=== PATIENT | female | born 2000 | race Caucasian/White ===

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

== ENCOUNTER 2024-08-16 12:26 | Emergency (ER) | payer OTHER ==
[~2024-08-16] VITALS: Ht 182.9 cm; Wt 80.7 kg
[2024-08-16] MEDS ORDERED: AMPHETAMINE SAL15 MG PO (12:50)
[2024-08-16] MEDS ORDERED: SPIRONOLACTONE25 MG PO (12:50)
[2024-08-16] MEDS ORDERED: ESCITALOPRAM OX10 MG PO (12:50)
[2024-08-16] MEDS ORDERED: AMITRIPTYLINE H50 MG PO (12:50)
[2024-08-16 13:16] LABS: BASOPHILS 0.4 % (0-2); EOSINOPHILS 2.4 % (0-6); HEMATOCRIT 39.1 % (35.0-50.0); HEMOGLOBIN 13.7 g/dL (12.0-18.0); LYMPHOCYTES 16.6 % (24-44); MCH 31.4 (27-36); MCV 89.7 fl (81-99); MONOCYTES 8.8 % (0-12); NEUTROPHILS 71.8 % (39-80); PLATELET COUNT 265 K/uL (140-440); RBC 4.36 M/ul (4.3-5.7); RDW 13.3 (10.5-15.0)
[2024-08-16 13:37] LABS: ALBUMIN 3.9 g/dL (3.4-5.0); ALBUMIN/GLOBULIN RATIO 1.22 (1.1-2.4); ANION GAP 12.8 (7-21); BILIRUBIN, TOTAL 0.4 ng/dL (0.2-1.0); BUN/CREATININE RATIO 6.84 (6.0-28.6); CALCIUM 9.2 mg/dL (8.5-10.1); CREATININE, SERUM 0.73 mg/dL (0.55-1.02); POTASSIUM 3.8 mmol/L (3.5-5.1); PROTEIN, TOTAL 7.1 g/dL (6.4-8.2)
[2024-08-16 13:59] LABS: INFLUENZA B NAA NEGATIVE (NEGATIVE); RESPIRATORY SYNCYTIAL VIR NAA NEGATIVE (NEGATIVE)
[2024-08-16 14:57] VITALS: BP 123/66
[2024-08-16] MEDS ORDERED: predniSONE 20 MG TAB PO ONE (15:00)
--- NOTE | 2024-08-17 19:22 | EKG ---
[facility] [address] [place] [address] Signed Normal sinus rhythm Normal ECG No previous ECGs available Confirmed by Derick Burnham MD ([id number]) on 08/17/2024 7:22:18 PM Electronically Signed By: DERICK BURNHAM MD 08/17/241921 PATIENT NAME: QUANTIFFANIE ROBY Electrocardiogram DATE OF : 4 PHYSICIAN: DERICK BURNHAM MD REPORT #: [id number] REPORT IS CONFIDENTIAL AND NOT TO BE RELEASED WITHOUT AUTHORIZATION
== END 2024-08-16 14:57 | disposition home or self-care (01) ==
LOC: ED 12:26
PROVIDERS: Emergency Medicine
DX: J00 Acute nasopharyngitis [common cold] (principal); J45.909 Unspecified asthma, uncomplicated; Z79.899 Other long term (current) drug therapy
CPT/HCPCS: 36415; 71045; 80053; 85025; 85379; 87502; 93005; 93010; 99285-25; J7512; U0002

== ENCOUNTER 2025-02-20 14:53 | Emergency (ER) | payer OTHER ==
[~2025-02-20] VITALS: Ht 182.9 cm; Wt 79.0 kg
[~2025-02-20 14:53] MED LIST changes: +AMITRIPTYLINE H50 MG PO; +AMPHETAMINE SAL15 MG PO; +ESCITALOPRAM OX10 MG PO; +SPIRONOLACTONE25 MG PO
[2025-02-20] MEDS ORDERED: ALBUTEROL2.5 MG/3 M INH (17:16)
[2025-02-20 18:30] VITALS: BP 125/76
== END 2025-02-20 18:30 | disposition home or self-care (01) ==
LOC: ED 14:53
DX: S00.33XA Contusion of nose, initial encounter (principal); J45.909 Unspecified asthma, uncomplicated; W22.8XXA Striking against or struck by other objects, initial encounter; Z79.899 Other long term (current) drug therapy
CPT/HCPCS: 70486; 99283-25

== ENCOUNTER 2025-04-21 09:07 | Emergency (ER) | payer OTHER ==
[~2025-04-21] VITALS: Ht 182.9 cm; Wt 79.9 kg
[~2025-04-21 09:07] MED LIST changes: +ALBUTEROL2.5 MG/3 M INH
[2025-04-21 10:48] VITALS: BP 121/79
== END 2025-04-21 10:40 | disposition home or self-care (01) ==
LOC: ED 09:07
DX: R07.0 Pain in throat (principal); J45.909 Unspecified asthma, uncomplicated; Z79.899 Other long term (current) drug therapy
CPT/HCPCS: 99283